=== PATIENT | male | born 2000 | race African-American/Black ===

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

== ENCOUNTER 2022-11-02 12:05 | Emergency (ER) | payer OTHER ==
[~2022-11-02] VITALS: Ht 188 cm; Wt 102.1 kg
[~2022-11-02 12:05] MED LIST: CEPH500T PO
[2022-11-02 13:10] LABS: RSV AMPLIFICATION NEGATIVE (NEGATIVE)
[2022-11-02] MEDS ORDERED: FLUTISP (15:45)
[2022-11-02] MEDS ORDERED: AMOX875T2 PO (15:46)
[2022-11-02 15:52] VITALS: BP 116/58
== END 2022-11-02 15:53 | disposition home or self-care (01) ==
LOC: M ED 12:05
DX: J20.9 Acute bronchitis, unspecified (principal); J01.00 Acute maxillary sinusitis, unspecified

== ENCOUNTER 2025-07-18 10:05 | Emergency (ER) | payer OTHER ==
[~2025-07-18] VITALS: Ht 188 cm; Wt 106.0 kg
[~2025-07-18 10:05] MED LIST changes: +AMOX875T2 PO; +FLUTISP
[2025-07-18 11:44] VITALS: BP 119/68; TEMP 98.2; O2SAT 97
== END 2025-07-18 11:53 | disposition home or self-care (01) ==
LOC: M ED 10:05
DX: S93.601A Unspecified sprain of right foot, initial encounter (principal); W00.0XXA Fall on same level due to ice and snow, initial encounter; Y92.017 Garden or yard in single-family (private) house as the place of occurrence of the external cause; Y93.9 Activity, unspecified; Y99.9 Unspecified external cause status